=== PATIENT | male | born 1975 | race African-American/Black ===

== ENCOUNTER 2017-04-15 14:42 | Emergency (ER) | payer SELFPAY ==
[~2017-04-15] VITALS: Ht 180.3 cm; Wt 104.3 kg
[~2017-04-15 14:42] MED LIST: AMLODIPINE BESYL5 MG PO; AMOXICILLIN500 MG PO; AUGMENTIN 875 M1 TAB PO; BACTRIM DS 8001 TA1 PO; BACTRIM DS 8001 TAB PO; BENICAR HCT 12.1 TAB; CATAFLAM50 MG PO; CIPRO500 MG PO; CLARITIN10 MG PO; FLONASE 0.05% 121 EA NAS; HYDROCHLOROTHIA25 M1 PO; HYDROCODONE BIT1 T11 PO; KEFLEX500 MG PO; LEXAPRO10 MG; LISINOPRIL10 M1 PO; NKHM; NORCO 5-325 TA1 EACH PO; OMNICEF300 MG PO; PERCOCET 325 MG1 TA2 PO; PHENERGAN W/ DE30 ML PO; PREDNICOT10 MG PO; PROVENTIL0.09 MG/AC IH; ROBAXIN500 MG PO; TRAMADOL HCL50 MG PO; VITAMIN D50000 I3 PO; ZOFRAN ODT4 MG SL; ZYRTEC10 MG PO; Zofran4 MG PO
[2017-04-15] MEDS ORDERED: AUGMENTIN 875875 MG PO (15:00)
[2017-04-15] MEDS ORDERED: FLONASE ALLERG9.9 ML NAS (15:00)
== END 2017-04-15 15:51 | disposition home or self-care (01) ==
LOC: ED 14:42
DX: J01.90 Acute sinusitis, unspecified (principal); F17.200 Nicotine dependence, unspecified, uncomplicated

== ENCOUNTER 2017-06-04 10:27 | Emergency (ER) | payer SELFPAY ==
[~2017-06-04] VITALS: Wt 127.0 kg
[~2017-06-04 10:27] MED LIST changes: +AUGMENTIN 875875 MG PO; +FLONASE ALLERG9.9 ML NAS
[2017-06-04] MEDS ORDERED: CEPHALEXIN500 M1 PO (11:04)
== END 2017-06-04 12:13 | disposition home or self-care (01) ==
LOC: ED 10:27
DX: H61.21 Impacted cerumen, right ear (principal); H60.502 Unspecified acute noninfective otitis externa, left ear; F17.200 Nicotine dependence, unspecified, uncomplicated

== ENCOUNTER 2017-12-06 08:41 | Emergency (ER) | payer SELFPAY ==
[~2017-12-06] VITALS: Ht 180.3 cm; Wt 99.8 kg
[~2017-12-06 08:41] MED LIST changes: +CEPHALEXIN500 M1 PO
[2017-12-06 08:59] LABS: BASO # 0.2 10*3/uL (0.0-0.1); EOS # 0.3 10*3/uL (0.0-0.4); HEMATOCRIT 46.6 % (42.0-52.0); HEMOGLOBIN 15.9 g/dl (14.0-18.0); LYMPH # 3.6 10*3/uL (1.3-4.4); LYMPH % 24.2 % (27.0-41.0); MEAN CELL VOLUME 92.3 fl (80.0-94.0); MEAN CORPUSCULAR HGB 31.5 pg (27.0-31.0); MEAN CORPUSCULAR HGB CONC 34.1 g/dl (33.0-37.0); MEAN PLATELET VOLUME 11.4 fl (9.6-12.3); MONO % 6.4 % (3.0-9.0); NEUT # 9.9 10*3/uL (2.3-7.9); NEUT % 65.9 % (47.0-73.0); PLATELET COUNT AUTOMATED 297 10*3/uL (130-400); RED BLOOD COUNT 5.05 10*6/uL (4.50-5.90); RED CELL DISTRI WIDTH 13.1 % (0-14.5)
[2017-12-06 09:11] LABS: BUN 14 mg/dl (7-24); CHLORIDE 104 mmol/L (98-107); CREATININE 1.44 mg/dL (0.70-1.30); SODIUM 138 mmol/L (136-145)
[2017-12-06 09:18] LABS: BILIRUBIN NEGATIVE (NEGATIVE); BLOOD 2+ (NEGATIVE); CLARITY SL CLOUDY (CLEAR); COLOR YELLOW (YELLOW); GLUCOSE NEGATIVE (NEGATIVE); KETONE NEGATIVE (NEGATIVE); LEUKO ESTERASE 3+ (NEGATIVE); NITRITE NEGATIVE (NEGATIVE); PH 5.5 (5.0-9.0)
[2017-12-06 09:30] LABS: BACTERIA 1+; EPITHELIAL CELLS 15-20; RBC TNTC rbc/hpf (0-2); WBC TNTC wbc/hpf (0-5)
[2017-12-06] MEDS ORDERED: FLAGYL500 MG PO (11:54)
[2017-12-06] MEDS ORDERED: LEVOFLOXACIN500 MG PO (11:54)
== END 2017-12-06 11:49 | disposition home or self-care (01) ==
LOC: ED 08:41
PROVIDERS: Emergency Medicine
DX: N39.0 Urinary tract infection, site not specified (principal); R31.9 Hematuria, unspecified; Z90.89 Acquired absence of other organs; Z90.5 Acquired absence of kidney

== ENCOUNTER 2018-09-19 15:58 | Emergency (ER) | payer SELFPAY ==
[~2018-09-19] VITALS: Ht 180.3 cm; Wt 127.0 kg
[~2018-09-19 15:58] MED LIST changes: +CORTISPORIN SUS10 ML OT; +FLAGYL500 MG PO; +LEVOFLOXACIN500 MG PO
[2018-09-19] MEDS ORDERED: FLONASE ALLERG9.9 ML NAS (17:31)
[2018-09-19] MEDS ORDERED: AMOXICILLIN500 M2 PO (17:31)
== END 2018-09-19 17:37 | disposition home or self-care (01) ==
LOC: ED 15:58
DX: J01.90 Acute sinusitis, unspecified (principal); I10 Essential (primary) hypertension; F17.200 Nicotine dependence, unspecified, uncomplicated; Z90.89 Acquired absence of other organs; Z79.899 Other long term (current) drug therapy

== ENCOUNTER 2019-08-07 08:21 | Inpatient (IN) | payer SELFPAY ==
[2019-08-07] VITALS (7 sets, daily range): BP systolic 128–159; BP diastolic 83–100
[~2019-08-07] VITALS: Ht 180.3 cm; Wt 95.1 kg
[~2019-08-07 08:21] MED LIST changes: +AMOXICILLIN500 M2 PO
[2019-08-07 09:21] LABS: HEMATOCRIT 50.5 % (42.0-52.0); HEMOGLOBIN 17.3 g/dl (14.0-18.0); MEAN CELL VOLUME 90.5 fl (80.0-94.0); MEAN CORPUSCULAR HGB CONC 34.3 g/dl (33.0-37.0); MEAN PLATELET VOLUME 11.5 fl (9.6-12.3); PLATELET COUNT AUTOMATED 331 10*3/uL (130-400); RED BLOOD COUNT 5.58 10*6/uL (4.50-5.90); RED CELL DISTRI WIDTH 12.4 % (0-14.5); WHITE BLOOD COUNT 29.2 10*3/uL (4.8-10.8)
[2019-08-07 09:33] LABS: ALBUMIN 3.7 gm/dl (3.1-4.5); BUN 13 mg/dl (7-24); CHLORIDE 97 mmol/L (98-107); CREATININE 1.54 mg/dL (0.70-1.30); POTASSIUM 3.6 mmol/L (3.5-5.1); SGOT/AST 8 IU/L (3-35); SGPT/ALT 27 U/L (12-78); SODIUM 132 mmol/L (136-145); TOTAL PROTEIN 8.8 gm/dL (6.4-8.2)
[2019-08-07 09:34] LABS: ALKALINE PHOSPHATASE 134 U/L (45-117)
[2019-08-07 09:58] LABS: ATYPICAL LYMPHS 3 % (0-0); BASOPHILS 1 % (0-1); PLATELET SUFFICIENCY NORMAL (NORMAL); TOTAL CELLS COUNTED 100 #CELLS
[2019-08-08] VITALS: BP 129/74
[2019-08-08 06:49] LABS: HEMATOCRIT 43.2 % (42.0-52.0); HEMOGLOBIN 14.9 g/dl (14.0-18.0); MEAN CELL VOLUME 90.2 fl (80.0-94.0); MEAN CORPUSCULAR HGB 31.1 pg (27.0-31.0); MEAN CORPUSCULAR HGB CONC 34.5 g/dl (33.0-37.0); MEAN PLATELET VOLUME 11.8 fl (9.6-12.3); PLATELET COUNT AUTOMATED 292 10*3/uL (130-400); RED BLOOD COUNT 4.79 10*6/uL (4.50-5.90); RED CELL DISTRI WIDTH 12.4 % (0-14.5); WHITE BLOOD COUNT 20.3 10*3/uL (4.8-10.8)
[2019-08-08 06:56] LABS: ACT PARTIAL THROMBO TIME 32.6 SECONDS (20.0-32.1)
[2019-08-08 07:25] LABS: ALBUMIN 2.8 gm/dl (3.1-4.5); ALKALINE PHOSPHATASE 110 U/L (45-117); BUN 12 mg/dl (7-24); CHLORIDE 101 mmol/L (98-107); CHOLESTEROL 95 mg/dL (<200); CREATININE 1.43 mg/dL (0.70-1.30); FREE T4 1.52 ng/dl (0.76-1.46); HDL CHOLESTEROL 33 mg/dl (40-60); LDL CHOLESTEROL 37 mg/dL (9-159); PHOSPHOROUS 2.1 mg/dL (2.5-4.9); POTASSIUM 3.7 mmol/L (3.5-5.1); SGOT/AST 13 IU/L (3-35); SGPT/ALT 25 U/L (12-78); SODIUM 134 mmol/L (136-145); TOTAL PROTEIN 7.1 gm/dL (6.4-8.2); TRIGLYCERIDES 125 mg/dl (<150); VLDL CHOLESTEROL 25 mg/dL (6-40)
[2019-08-08 07:45] LABS: PLATELET SUFFICIENCY NORMAL (NORMAL); TOTAL CELLS COUNTED 100 #CELLS
[2019-08-08 08:00] VITALS: BP 129/80
[2019-08-08 09:41] LABS: VITAMIN D, 25-HYDROXY 12.3 ng/mL (30-100)
[2019-08-08] MEDS ORDERED: CIPRO500 MG PO (09:57)
[2019-08-08] MEDS ORDERED: FLAGYL500 MG PO (09:57)
[2019-08-08] MEDS ORDERED: HYDROCODONE-AC1 EAC1 PO (10:01)
== END 2019-08-08 11:19 | disposition home or self-care (01) | DRG 853 ==
LOC: ED 08:21 → EDHOLD 12:20 → 5E 12:47
PROVIDERS: Emergency Medicine; Family Medicine; ADMIT Internal Medicine
PROC: 0D9P0ZZ Drainage of Rectum, Open Approach (ICD-10-PCS; principal; 2019-08-07)
DX: A41.9 Sepsis, unspecified organism (principal); N17.0 Acute kidney failure with tubular necrosis; K61.1 Rectal abscess; E87.1 Hypo-osmolality and hyponatremia; E44.0 Moderate protein-calorie malnutrition; E83.41 Hypermagnesemia; R74.8 Abnormal levels of other serum enzymes; F17.210 Nicotine dependence, cigarettes, uncomplicated; R65.20 Severe sepsis without septic shock; E11.65 Type 2 diabetes mellitus with hyperglycemia; E66.9 Obesity, unspecified; E11.22 Type 2 diabetes mellitus with diabetic chronic kidney disease; I12.9 Hypertensive chronic kidney disease with stage 1 through stage 4 chronic kidney disease, or unspecified chronic kidney disease; N18.3 Chronic kidney disease, stage 3 (moderate); E83.39 Other disorders of phosphorus metabolism; E53.8 Deficiency of other specified B group vitamins; E78.6 Lipoprotein deficiency; R94.6 Abnormal results of thyroid function studies; Z71.6 Tobacco abuse counseling; Z90.5 Acquired absence of kidney; Z82.49 Family history of ischemic heart disease and other diseases of the circulatory system; Z85.528 Personal history of other malignant neoplasm of kidney; Z84.1 Family history of disorders of kidney and ureter; Z68.29 Body mass index [BMI] 29.0-29.9, adult

== ENCOUNTER 2020-08-31 00:56 | Emergency (ER) | payer SELFPAY ==
[~2020-08-31] VITALS: Ht 180.3 cm; Wt 89.8 kg
[~2020-08-31 00:56] MED LIST changes: +HYDROCODONE-AC1 EAC1 PO
== END 2020-08-31 01:33 | disposition home or self-care (01) ==
LOC: ED 00:56
DX: R09.89 Other specified symptoms and signs involving the circulatory and respiratory systems (principal); R51.9 Headache, unspecified; I10 Essential (primary) hypertension; Z85.528 Personal history of other malignant neoplasm of kidney; Z79.2 Long term (current) use of antibiotics; Z79.899 Other long term (current) drug therapy

== ENCOUNTER 2020-11-10 18:45 | Emergency (ER) | payer SELFPAY ==
[~2020-11-10] VITALS: Ht 180.3 cm; Wt 86.2 kg
[2020-11-10] MEDS ORDERED: DIPHENHYDRAMINE50 M1 PO (20:29)
== END 2020-11-10 20:38 | disposition home or self-care (01) ==
LOC: ED 18:45
DX: T78.40XA Allergy, unspecified, initial encounter (principal); I12.9 Hypertensive chronic kidney disease with stage 1 through stage 4 chronic kidney disease, or unspecified chronic kidney disease; E11.22 Type 2 diabetes mellitus with diabetic chronic kidney disease; N18.30 Chronic kidney disease, stage 3 unspecified; F17.200 Nicotine dependence, unspecified, uncomplicated; Z79.899 Other long term (current) drug therapy; Z98.890 Other specified postprocedural states; X58.XXXA Exposure to other specified factors, initial encounter

== ENCOUNTER 2020-12-24 01:21 | Emergency (ER) | payer SELFPAY ==
[~2020-12-24] VITALS: Ht 180.3 cm; Wt 83.0 kg
[~2020-12-24 01:21] MED LIST changes: +DIPHENHYDRAMINE50 M1 PO
[2020-12-24 01:59] LABS: BASO # 0.1 10*3/uL (0.0-0.1); BASO % 0.6 % (0.0-1.0); EOS # 0.2 10*3/uL (0.0-0.4); HEMATOCRIT 52.6 % (42.0-52.0); LYMPH # 3.5 10*3/uL (1.3-4.4); LYMPH % 24.5 % (27.0-41.0); MEAN CELL VOLUME 92.6 fl (80.0-94.0); MEAN CORPUSCULAR HGB 31.5 pg (27.0-31.0); MEAN PLATELET VOLUME 11.5 fl (9.6-12.3); MONO # 1.1 10*3/uL (0.1-1.0); MONO % 7.8 % (3.0-9.0); NEUT # 9.4 10*3/uL (2.3-7.9); NEUT % 65.8 % (47.0-73.0); PLATELET COUNT AUTOMATED 299 10*3/uL (130-400); RED BLOOD COUNT 5.68 10*6/uL (4.50-5.90); RED CELL DISTRI WIDTH 13.3 % (0-14.5); WHITE BLOOD COUNT 14.3 10*3/uL (4.8-10.8)
[2020-12-24 02:09] LABS: ALBUMIN 3.8 gm/dl (3.1-4.5); ALKALINE PHOSPHATASE 96 U/L (45-117); BUN 10 mg/dl (7-24); CHLORIDE 103 mmol/L (98-107); POTASSIUM 3.7 mmol/L (3.5-5.1); SGOT/AST 18 IU/L (3-35); SGPT/ALT 29 U/L (12-78); SODIUM 136 mmol/L (136-145); TOTAL PROTEIN 7.9 gm/dL (6.4-8.2)
[2020-12-24 02:56] LABS: ACETAMINOPHEN (TYLENOL) < 5.0 ug/ml (10-30)
[2020-12-24] MEDS ORDERED: METHOCARBAMOL750 M1 PO (03:08)
== END 2020-12-24 03:30 | disposition home or self-care (01) ==
LOC: ED 01:21
PROVIDERS: Internal Medicine
DX: S29.012A Strain of muscle and tendon of back wall of thorax, initial encounter (principal); Z79.899 Other long term (current) drug therapy; Z98.890 Other specified postprocedural states; X58.XXXA Exposure to other specified factors, initial encounter; Y93.89 Activity, other specified; Y92.89 Other specified places as the place of occurrence of the external cause; Y99.8 Other external cause status

== ENCOUNTER 2021-02-02 00:06 | Emergency (ER) | payer SELFPAY ==
[~2021-02-02] VITALS: Ht 180.3 cm; Wt 85.7 kg
[~2021-02-02 00:06] MED LIST changes: +METHOCARBAMOL750 M1 PO
[2021-02-02] MEDS ORDERED: CIPRO500 MG PO (01:24)
== END 2021-02-02 01:39 | disposition home or self-care (01) ==
LOC: ED 00:06
DX: S00.461A Insect bite (nonvenomous) of right ear, initial encounter (principal); I12.9 Hypertensive chronic kidney disease with stage 1 through stage 4 chronic kidney disease, or unspecified chronic kidney disease; E11.22 Type 2 diabetes mellitus with diabetic chronic kidney disease; N18.30 Chronic kidney disease, stage 3 unspecified; Z79.899 Other long term (current) drug therapy; Z90.5 Acquired absence of kidney; W57.XXXA Bitten or stung by nonvenomous insect and other nonvenomous arthropods, initial encounter; Y93.89 Activity, other specified; Y92.89 Other specified places as the place of occurrence of the external cause; Y99.8 Other external cause status

== ENCOUNTER 2021-03-31 12:50 | Emergency (ER) | payer SELFPAY ==
[~2021-03-31] VITALS: Wt 89.8 kg
== END 2021-03-31 16:21 | disposition left against medical advice (07) ==
LOC: ED 12:50
DX: M79.89 Other specified soft tissue disorders (principal); Z53.21 Procedure and treatment not carried out due to patient leaving prior to being seen by health care provider

== ENCOUNTER 2021-03-31 23:27 | Emergency (ER) | payer SELFPAY ==
[~2021-03-31] VITALS: Ht 180.3 cm; Wt 89.8 kg
== END 2021-04-01 05:20 | disposition home or self-care (01) ==
LOC: ED 23:27
DX: M79.645 Pain in left finger(s) (principal); E66.9 Obesity, unspecified; I12.9 Hypertensive chronic kidney disease with stage 1 through stage 4 chronic kidney disease, or unspecified chronic kidney disease; E11.22 Type 2 diabetes mellitus with diabetic chronic kidney disease; N18.30 Chronic kidney disease, stage 3 unspecified